=== PATIENT | male | born 1955 | race Hispanic/Latino ===

== ENCOUNTER 2019-07-24 10:42 | Emergency (ER) | payer OTHER ==
[~2019-07-24 10:42] MED LIST: BUPR150SR PO; CHRO1TAB7 PO; ESCI10TA PO; INVOK100TB PO; METO-391 PO; MULT-1203 PO
[2019-07-24] MEDS ORDERED: ASPIRIN 325 MG TABLET ONE (10:57)
[2019-07-24 11:07] LABS: BASOPHILS % (AUTO) 0.7 % (0.0-5.0); EOSINOPHILS % (AUTO) 0.1 % (0.0-8.0); HEMATOCRIT 49.6 % (42-54); LYMPHOCYTES % (AUTO) 6.1 % (21.0-51.0); MEAN CORPUSCULAR HEMOGLOBIN 31.9 pg (27.0-33.0); MEAN CORPUSCULAR VOLUME 91.1 fL (79-99); MONOCYTES % (AUTO) 12.5 % (3.0-13.0); NEUTROPHILS % (AUTO) 80.6 % (40.0-77.0); NUCLEATED RED BLOOD CELLS 1.3 % (0.0-0.19); PLATELET COUNT (AUTO) 210 K/uL (130-400); RED BLOOD CELL COUNT(AUTO) 5.44 MIL/uL (4.50-6.20); WHITE BLOOD COUNT (AUTO) 10.3 K/uL (4.8-10.8)
[2019-07-24 11:33] LABS: CREATININE 1.4 mg/dL (0.5-1.5); POTASSIUM 3.9 mmol/L (3.5-5.1)
[2019-07-24 11:37] LABS: INR 1.03 (0.85-1.15); PARTIAL THROMBOPLASTIN TIME 26.2 SEC (26.3-35.5); PROTHROMBIN TIME 10.8 SEC (9.6-11.6)
[2019-07-24 11:40] LABS: ALBUMIN 4.2 g/dL (3.5-5.0); BILIRUBIN,TOTAL 0.9 mg/dL (0.2-1.0); TOTAL PROTEIN, SERUM 7.9 g/dL (6.0-8.3)
[2019-07-24] MEDS ORDERED: SODIUM CHLORIDE 0.9% 1000ML 1,000 ML IV ONE (12:03)
[2019-07-24] MEDS ORDERED: ACETAMINOPHEN 325 MG TAB ONE (12:05)
[2019-07-24] MEDS ORDERED: INSULIN HUMULIN R 100 UNIT/ML 3ML ONE (12:05)
[2019-07-24 12:42] LABS: APPEARANCE,URINE Clear (CLEAR); BILIRUBIN,URINE Negative (NEGATIVE); COLOR,URINE Yellow (YELLOW); GLUCOSE, URINE (UA) >=1000 mg/dL (NEGATIVE); KETONES,URINE Negative (NEGATIVE); LEUKOCYTE ESTERASE ,URINE Negative (NEGATIVE); NITRATE,URINE Negative (NEGATIVE); OCCULT BLOOD,URINE Negative (NEGATIVE); PROTEIN,URINE Negative (NEGATIVE)
[2019-07-24 12:54] LABS: BACTERIA,URINE Rare /HPF (None Seen); RBC,URINE None Seen /HPF (0-1); SQUAMOUS EPITHELIAL CELL,UR Rare /HPF (0-2); WBC,URINE None Seen /HPF (0-1)
== END 2019-07-24 15:07 | disposition home or self-care (01) ==
LOC: EDH 10:42
DX: E11.65 Type 2 diabetes mellitus with hyperglycemia (principal)
CPT/HCPCS: 36415; 71045; 80053; 81001; 82150; 82550; 82948 ×2; 83690; 84484 ×2; 85025; 85610; 85730; 93005 ×2; 96361; 96374; 99285; J1815; J7030

== ENCOUNTER → 2019-08-25 | Outpatient (CLI) | payer OTHER | END | disposition home or self-care (01) | LOC: RAH 11:34 | PROVIDERS: ATTEND Family Medicine | DX: J98.11 Atelectasis (principal); I51.7 Cardiomegaly; I25.10 Atherosclerotic heart disease of native coronary artery without angina pectoris; K76.0 Fatty (change of) liver, not elsewhere classified; J18.9 Pneumonia, unspecified organism | CPT/HCPCS: 71250 ==

== ENCOUNTER → 2020-05-02 | Outpatient (CLI) | payer OTHER | END | disposition home or self-care (01) | LOC: RAH 10:39 | PROVIDERS: ATTEND Internal Medicine | DX: Z13.6 Encounter for screening for cardiovascular disorders (principal) | CPT/HCPCS: 75571 ==

== ENCOUNTER 2023-04-30 08:33 | Observation (INO) | payer MEDICARE ==
[2023-04-30] VITALS (17 sets, daily range): BP systolic 112–159; BP diastolic 48–85
[~2023-04-30] VITALS: Ht 170.2 cm; Wt 95.3 kg
[~2023-04-30 08:33] MED LIST changes: +BUPR-72 PO; -BUPR150SR PO
[2023-04-30 09:08] LABS: BASOPHILS % (AUTO) 0.3 % (0.0-5.0); EOSINOPHILS % (AUTO) 0.8 % (0.0-8.0); HEMATOCRIT 42.6 % (42-54); LYMPHOCYTES % (AUTO) 8.8 % (21.0-51.0); MEAN CORPUSCULAR HEMOGLOBIN 30.5 pg (27.0-33.0); MEAN CORPUSCULAR HGB CONC 34.5 g/dL (32.0-36.0); MEAN CORPUSCULAR VOLUME 88.4 fL (79-99); MONOCYTES % (AUTO) 7.5 % (3.0-13.0); NEUTROPHILS % (AUTO) 82.3 % (40.0-77.0); PLATELET COUNT (AUTO) 173 K/uL (130-400); RED BLOOD CELL COUNT(AUTO) 4.82 MIL/uL (4.50-6.20); RED CELL DISTRIBUTION WIDTH 12.7 % (11.0-15.5); WHITE BLOOD COUNT (AUTO) 10.6 K/uL (4.8-10.8)
[2023-04-30 09:20] LABS: POTASSIUM 4.1 mmol/L (3.5-5.1)
[2023-04-30 09:24] LABS: ALBUMIN 3.7 g/dL (3.5-5.0); TOTAL PROTEIN, SERUM 6.4 g/dL (6.0-8.3)
[2023-04-30] MEDS ORDERED: MORPHINE 4 MG SYG IVP ONE (09:30)
[2023-04-30] MEDS ORDERED: LACTATED RINGERS 1000ML 1,000 ML IV ONE ×2 (09:30→10:30)
[2023-04-30] MEDS ORDERED: KETOROLAC 15MG/ML VIAL (15MG/ML) IV ONE (09:30)
[2023-04-30] MEDS ORDERED: ONDANSETRON 4MG INJ IVP ONE (09:30)
[2023-04-30] MEDS ORDERED: MORPHINE 4 MG SYG ONE (09:31)
[2023-04-30] MEDS ORDERED: ONDANSETRON 4MG INJ ONE (09:31)
[2023-04-30] MEDS ORDERED: ZOSYN 3.375GM+NS 50ML 50 ML IVPB ONE (10:51)
[2023-04-30] MEDS ORDERED: ZOSYN 3.375GM +NS 50ML IVPB ONE ×2 (11:00)
[2023-04-30] MEDS ORDERED: 0.9%NACL 1000ML 1,000 ML IV ONE (11:30)
[2023-04-30] MEDS ORDERED: KETOROLAC 15MG/ML VIAL (15MG/ML) IV PRN (11:30)
[2023-04-30] MEDS ORDERED: ONDANSETRON 4MG INJ IVP PRN (11:30)
[2023-04-30] MEDS ORDERED: MORPHINE 2 MG SYG IVP PRN (11:30)
[2023-04-30 11:44] LABS: INR 0.96 (0.85-1.15); PROTHROMBIN TIME 11.2 SEC (9.6-11.6)
[2023-04-30 11:45] LABS: PARTIAL THROMBOPLASTIN TIME 29.6 SEC (26.3-35.5)
[2023-04-30] MEDS ORDERED: ROSU10TA28 PO (11:48)
[2023-04-30] MEDS ORDERED: BUPR-317 PO (11:48)
[2023-04-30] MEDS ORDERED: LISI10TA24 PO (11:48)
[2023-04-30] MEDS ORDERED: METF-444 PO (11:48)
[2023-04-30] MEDS ORDERED: METO-408 PO (11:48)
[2023-04-30 11:50] LABS: HEMOGLOBIN A1C 7.1 % (4.0-6.0)
[2023-04-30 13:32] LABS: APPEARANCE,URINE CLEAR (CLEAR); BILIRUBIN,URINE NEGATIVE (NEGATIVE); COLOR,URINE LIGHT-YELLOW (YELLOW); GLUCOSE, URINE (UA) >=1000 mg/dL (NEGATIVE); KETONES,URINE 20 mg/dL (NEGATIVE); LEUKOCYTE ESTERASE ,URINE NEGATIVE Leu/uL (NEGATIVE); NITRATE,URINE NEGATIVE (NEGATIVE); OCCULT BLOOD,URINE NEGATIVE (NEGATIVE); PROTEIN,URINE 10 mg/dL (NEGATIVE); UROBILINOGEN,URINE 0.2 mg/dL (0.2-1.0)
[2023-04-30 13:46] LABS: RBC,URINE 0-1 /HPF (0-1); SQUAMOUS EPITHELIAL CELL,UR RARE /HPF (0-2); WBC,URINE 0-1 /HPF (0-1)
[2023-04-30] MEDS ORDERED: FAMOTIDINE 20MG VIAL IV ONE (13:51)
[2023-04-30] MEDS ORDERED: LIDOCAINE PF 100MG/5ML (2%) SYRINGE 5ML ONE (14:01)
[2023-04-30] MEDS ORDERED: GLYCOPYRROLATE 1 MG/5 ML SYRINGE ONE (14:01)
[2023-04-30] MEDS ORDERED: MIDAZOLAM HCL 1 MG/ML 2ML VIAL ONE (14:02)
[2023-04-30] MEDS ORDERED: PROPOFOL 10 MG/ML 20ML VIAL IV ONE (14:02)
[2023-04-30] MEDS ORDERED: FENTANYL CITRATE PF 50 MCG/1 ML 2ML VIAL ONE (14:03)
[2023-04-30] MEDS ORDERED: ROCURONIUM 10MG/1ML SYR 10 MG/ML ML ONE (14:03)
[2023-04-30] MEDS ORDERED: BUPIVACAINE/PF 0.25% 30ML VIAL IJ ONE ×2 (14:55→14:58)
[2023-04-30] MEDS ORDERED: NEOSTIGMINE 5MG/5ML SYR IV ONE (15:11)
[2023-04-30] MEDS ORDERED: INSULIN HUMULIN R 100 UNIT/ML 3ML SQ SCH (18:00)
[2023-04-30] MEDS ORDERED: 0.9%NACL 50ML IV SCH (19:00)
[2023-04-30] MEDS ORDERED: ZOSYN 3.375GM +NS 50ML IVPB SCH (19:00)
[2023-04-30] MEDS: INSULIN HUMULIN R 100 UNIT/ML 3ML SQ SCH (20:05)
[2023-04-30] MEDS: ZOSYN 3.375GM +NS 50ML IVPB SCH (21:26)
[2023-05-01 04:00] VITALS: BP 140/59
[2023-05-01 04:56] LABS: BASOPHILS % (AUTO) 0.2 % (0.0-5.0); EOSINOPHILS % (AUTO) 0.7 % (0.0-8.0); LYMPHOCYTES % (AUTO) 12.1 % (21.0-51.0); MEAN CORPUSCULAR HEMOGLOBIN 30.5 pg (27.0-33.0); MEAN CORPUSCULAR HGB CONC 33.3 g/dL (32.0-36.0); MEAN CORPUSCULAR VOLUME 91.6 fL (79-99); MONOCYTES % (AUTO) 10.3 % (3.0-13.0); NEUTROPHILS % (AUTO) 76.2 % (40.0-77.0); PLATELET COUNT (AUTO) 153 K/uL (130-400); RED BLOOD CELL COUNT(AUTO) 3.93 MIL/uL (4.50-6.20); WHITE BLOOD COUNT (AUTO) 8.9 K/uL (4.8-10.8)
[2023-05-01 05:18] LABS: CREATININE 1.2 mg/dL (0.5-1.5); POTASSIUM 3.9 mmol/L (3.5-5.1); TOTAL PROTEIN, SERUM 5.6 g/dL (6.0-8.3)
[2023-05-01] MEDS: ZOSYN 3.375GM +NS 50ML IVPB SCH (05:45)
[2023-05-01] MEDS: INSULIN HUMULIN R 100 UNIT/ML 3ML SQ SCH (06:23)
[2023-05-01 08:00] VITALS: BP 116/62
[2023-05-01] MEDS ORDERED: METOPROLOL SUCCINATE 25 MG TAB.SR.24H PO SCH (09:00)
[2023-05-01] MEDS ORDERED: BUPROPRION 300 MG PO SCH (09:00)
[2023-05-01] MEDS ORDERED: (Rosuvastatin Calcium 10 MG) PO SCH (21:00)
== END 2023-05-01 10:30 | disposition still patient (30) ==
LOC: EDH 08:33 → OBSVTOIN 11:19 → INTOOBSV 11:19 → EDHIP 11:19 → 3CH 19:43
PROVIDERS: ADMIT Internal Medicine; ATTEND Internal Medicine
DX: K35.80 Unspecified acute appendicitis (principal); Z20.822 Contact with and (suspected) exposure to COVID-19; K42.0 Umbilical hernia with obstruction, without gangrene; I10 Essential (primary) hypertension; E11.9 Type 2 diabetes mellitus without complications; E78.5 Hyperlipidemia, unspecified; F32.9 Major depressive disorder, single episode, unspecified; K38.1 Appendicular concretions; Q33.3 Agenesis of lung; Z79.84 Long term (current) use of oral hypoglycemic drugs; Z79.899 Other long term (current) drug therapy; Z98.890 Other specified postprocedural states
CPT/HCPCS: 44970; 49594; 96376; 96365; 96366 ×3; 96375; 83036; 84484; 80053 ×2; 83690; 85025 ×2; 85610; 85730; 86850; 86900; 86901; 87040 ×2; 82948 ×6; 83605; 81001; 36415 ×2; 87635; 74176; 99291; 93005; J7030; J7120; A4452; A4344; J3490 ×4; J3010; J2710; J2001; J2250; J2704; J2405 ×2; J2270; J2543 ×3; J1885 ×2; C1769 ×3; A4649 ×4; A4930; G0378

== ENCOUNTER 2023-09-05 05:55 | Day surgery (SDC) | payer MEDICARE ==
[2023-09-03 10:14] LABS: BASOPHILS # (AUTO) 0.03 K/uL (0.00-0.20); BASOPHILS % (AUTO) 0.5 % (0.0-5.0); EOSINOPHILS # (AUTO) 0.07 K/uL (0.00-0.70); EOSINOPHILS % (AUTO) 1.1 % (0.0-8.0); HEMATOCRIT 48.2 % (42-54); IMMATURE GRANULOCYTE ABSOLUTE 0.02 K/uL (0-1); LYMPHOCYTES # (AUTO) 1.5 K/uL (1.0-4.8); MEAN CORPUSCULAR HEMOGLOBIN 30.3 pg (27.0-33.0); MEAN CORPUSCULAR HGB CONC 34.4 g/dL (32.0-36.0); MONOCYTES # (AUTO) 0.7 K/uL (0.1-1.0); MONOCYTES % (AUTO) 10.5 % (3.0-13.0); NEUTROPHILS # (AUTO) 4.2 K/uL (1.8-7.7); NEUTROPHILS % (AUTO) 64.6 % (40.0-77.0); PLATELET COUNT (AUTO) 228 K/uL (130-400); RED BLOOD CELL COUNT(AUTO) 5.48 MIL/uL (4.50-6.20); RED CELL DISTRIBUTION WIDTH 13.4 % (11.0-15.5); WHITE BLOOD COUNT (AUTO) 6.6 K/uL (4.8-10.8)
[2023-09-03 10:21] LABS: CREATININE 1.2 mg/dL (0.5-1.5); POTASSIUM 4.4 mmol/L (3.5-5.1)
[2023-09-03 10:27] LABS: APPEARANCE,URINE CLEAR (CLEAR); BILIRUBIN,URINE NEGATIVE (NEGATIVE); COLOR,URINE LIGHT-YELLOW (YELLOW); GLUCOSE, URINE (UA) >=1000 mg/dL (NEGATIVE); KETONES,URINE NEGATIVE (NEGATIVE); LEUKOCYTE ESTERASE ,URINE NEGATIVE Leu/uL (NEGATIVE); NITRATE,URINE NEGATIVE (NEGATIVE); OCCULT BLOOD,URINE NEGATIVE (NEGATIVE); PROTEIN,URINE NEGATIVE (NEGATIVE); UROBILINOGEN,URINE 0.2 mg/dL (0.2-1.0)
[2023-09-03 10:32] LABS: ADD UA MICROSCOPIC YES
[2023-09-03 10:37] LABS: PROTHROMBIN TIME 11.6 SEC (9.6-11.6)
[2023-09-03 10:38] LABS: PARTIAL THROMBOPLASTIN TIME 33.5 SEC (26.3-35.5)
[2023-09-03 10:44] VITALS: BP 123/67; PULSE 68; RESP 14
[2023-09-03 11:00] LABS: B-TYPE NATRIURETIC PEPTIDE 5 pg/mL (0-100)
[2023-09-03 11:28] LABS: RBC,URINE 0-1 /HPF (0-1); WBC,URINE 0-1 /HPF (0-1)
[~2023-09-05] VITALS: Ht 170.2 cm; Wt 90.7 kg
[2023-09-05] VITALS (10 sets, daily range): BP systolic 83–113; BP diastolic 45–65; PULSE 60–70; RESP 14–18
[~2023-09-05 05:55] MED LIST changes: +BUPR-317 PO; -BUPR-72 PO; +CANA300T PO; -CHRO1TAB7 PO; -INVOK100TB PO; +LISI10TA24 PO; +METF-444 PO; -METO-391 PO; +METO-408 PO; -MULT-1203 PO; +MULT-1367 PO; +ROSU10TA28 PO; +TAMS-1 PO
[2023-09-05] MEDS ORDERED: 0.9%NACL 1000ML 1,000 ML IV ONE (06:42)
[2023-09-05] MEDS ORDERED: HEPARIN 10,000 UNIT/10ML (1,000 UNIT/ML) VIAL ONE (07:09)
[2023-09-05] MEDS ORDERED: IOHEXOL 350 MG/ML 100ML INFUS..BTL IV ONE (07:09)
[2023-09-05] MEDS ORDERED: SODIUM BICARB 50MEQ 50ML VIAL 50 ML ONE (07:09)
[2023-09-05] MEDS ORDERED: LIDOCAINE HCL 400MG/20ML VIAL ONE (07:09)
[2023-09-05] MEDS ORDERED: NICARDIPINE 25MG INJ IV ONE (07:10)
[2023-09-05] MEDS ORDERED: NITROGLYCERIN 50MG VIAL ONE (07:10)
[2023-09-05] MEDS ORDERED: MEPERIDINE-PF 25 MG/ML SYG ONE ×3 (07:12→07:52)
[2023-09-05] MEDS ORDERED: MIDAZOLAM HCL 1 MG/ML 2ML VIAL ONE ×3 (07:13→07:52)
[2023-09-05] MEDS ORDERED: ASPIRIN 81MG CHEW TAB ONE (07:40)
[2023-09-05] MEDS ORDERED: 0.9%NACL 1000ML 1,000 ML IV SCH (08:30)
[2023-09-05] MEDS ORDERED: DEXTROSE 50%-WATER 50 ML DISP.SYRIN IV PRN (08:30)
[2023-09-05] MEDS ORDERED: GLUCAGON 1MG KIT 1 MG ML IM PRN (08:30)
[2023-09-05] MEDS ORDERED: INSULIN HUMULIN R 100 UNIT/ML 3ML SQ SCH (11:30)
== END 2023-09-05 12:35 | disposition home or self-care (01) ==
LOC: DAH 05:55
PROVIDERS: ATTEND Internal Medicine Cardiovascular Disease
DX: I25.119 Atherosclerotic heart disease of native coronary artery with unspecified angina pectoris (principal); I10 Essential (primary) hypertension; E11.9 Type 2 diabetes mellitus without complications; Z79.899 Other long term (current) drug therapy; Z79.01 Long term (current) use of anticoagulants; Z87.891 Personal history of nicotine dependence; Z72.89 Other problems related to lifestyle; Z98.890 Other specified postprocedural states; Z90.49 Acquired absence of other specified parts of digestive tract; Z98.52 Vasectomy status
CPT/HCPCS: 80048; 83880; 85025; 85610; 85730; 81001; 36415; 71045; 93005; 93458; 82948; 93306; C1769; A4649; C1894; Q9965; J3490 ×4; J7030; J1644 ×2; J2250 ×2; J2175 ×2; Q9967; A4215; A4222; A4221; A4663; A4216; A4606; A4223 ×3; 99156; 99157